=== PATIENT | female | born 1985 | race American Indian/Alaskan Native ===

== ENCOUNTER 2022-08-28 07:01 | Emergency (ER) | payer SELFPAY ==
[2022-08-28] MEDS ORDERED: Lactated Ringers 1,000 ML IV ONE (07:23)
[2022-08-28] MEDS ORDERED: Ondansetron 4 MG/2 ML SDV IVPUSH ONE (07:24)
[2022-08-28] MEDS ORDERED: Ondansetron 4 MG/2 ML SDV ONE (07:50)
[2022-08-28] MEDS ORDERED: Promethazine 25 MG/ML SDV ONE (08:39)
[2022-08-28 09:07] LABS: A/G RATIO 1.1 (0.9-1.6); ALBUMIN 3.9 g/dL (3.4-5.0); BASOPHILS PERCENT AUTO 0.2 % (0.0-1.5); BILIRUBIN TOTAL 0.4 mg/dL (0.2-1.0); CALCIUM 9.3 mg/dL (8.5-10.1); CARBON DIOXIDE,CO2 25.7 mmol/L (21.0-32.0); CREATININE 0.9 mg/dL (0.6-1.0); EOSINOPHILS ABSOLUTE AUTO 0.1 K/uL (0.0-0.7); EOSINOPHILS PERCENT AUTO 0.4 % (0.0-7.0); EST CRCL DRUG DOSING (CG) 64.58 mL/min; HEMOGLOBIN 12.9 g/dL (12.0-16.0); LYMPHOCYTES ABSOLUTE AUTO 1.4 K/uL (0.6-2.4); LYMPHOCYTES PERCENT AUTO 6.9 % (16.0-40.0); MEAN CORPUSCULAR HEMOGLOBIN 31.5 pg (27.0-32.0); MEAN CORPUSCULAR HGB CONC 33.1 g/dL (31.0-37.0); MEAN CORPUSCULAR VOLUME 95.4 fL (80.0-98.0); MONOCYTES ABSOLUTE AUTO 1.2 K/uL (0.0-0.8); MONOCYTES PERCENT AUTO 6.2 % (0.0-15.0); NEUTROPHILS ABSOLUTE AUTO 17.1 K/uL (1.4-5.7); NEUTROPHILS PERCENT AUTO 86.3 % (48.0-80.0); PLATELET COUNT,PLT 321 K/uL (150-400); POTASSIUM,K 3.3 mmol/L (3.5-5.1); PROTEIN TOTAL,TP 7.6 g/dL (6.4-8.2); RED BLOOD CELL COUNT 4.09 M/uL (4.30-5.90); WHITE BLOOD CELL COUNT,WBC 19.78 K/uL (4.0-11.0)
[2022-08-28] MEDS ORDERED: Acetaminophen 325 MG Tab PO ONE (09:45)
[2022-08-28] MEDS ORDERED: Ketorolac 30 MG/ML SDV IVPUSH ONE (09:45)
== END 2022-08-28 10:51 | disposition home or self-care (01) ==
LOC: MW.ED 07:01
DX: R10.84 Generalized abdominal pain (principal); R11.2 Nausea with vomiting, unspecified; R19.7 Diarrhea, unspecified; Z90.49 Acquired absence of other specified parts of digestive tract
CPT/HCPCS: 36415; 80053; 83690; 84703; 85025; 96361; 96374; 96375; 99284; A9270; J1885; J2405

== ENCOUNTER 2024-04-12 13:42 | Emergency (ER) | payer SELFPAY ==
[2024-04-12] MEDS: Promethazine 25 MG/ML SDV IM ONE (14:56)
[2024-04-12] MEDS: Sodium Chloride 0.9% 1,000 ML IV ONE ×2 (14:56→16:08)
[2024-04-12 15:10] LABS: BASOPHILS ABSOLUTE AUTO 0.05 K/uL (0.00-0.20); BASOPHILS PERCENT AUTO 0.3 % (0.0-1.0); HEMATOCRIT 36.2 % (37.0-47.0); IMMATURE GRAN ABSOLUTE AUTO 0.13 K/uL (0.00-0.05); IMMATURE GRAN PERCENT AUTO 0.7 % (0.0-0.4); LYMPHOCYTES ABSOLUTE AUTO 0.99 K/uL (1.00-4.80); LYMPHOCYTES PERCENT AUTO 5.5 % (24.0-44.0); MEAN CORPUSCULAR HEMOGLOBIN 30.8 pg (28.0-32.0); MEAN CORPUSCULAR HGB CONC 33.1 g/dL (32.0-36.0); MEAN CORPUSCULAR VOLUME 93.1 fL (83.0-99.0); MEAN PLATELET VOLUME 9.9 fL (9.4-12.3); MONOCYTES ABSOLUTE AUTO 0.56 K/uL (0.00-0.80); MONOCYTES PERCENT AUTO 3.1 % (0.0-8.0); NEUTROPHILS ABSOLUTE AUTO 16.38 K/uL (1.80-7.70); NEUTROPHILS PERCENT AUTO 90.4 % (41.0-71.0); PLATELET COUNT,PLT 340 K/uL (150-400); RED BLOOD CELL COUNT 3.89 M/uL (4.10-5.30); WHITE BLOOD CELL COUNT,WBC 18.11 K/uL (3.9-11.3)
[2024-04-12 15:34] LABS: A/G RATIO 1.1 (0.9-1.6); ALBUMIN 3.9 g/dL (3.4-5.0); BILIRUBIN TOTAL 0.2 mg/dL (0.2-1.0); CALCIUM 8.9 mg/dL (8.5-10.1); CARBON DIOXIDE,CO2 21.2 mmol/L (21.0-32.0); CREATININE 0.8 mg/dL (0.6-1.0); EST CRCL DRUG DOSING (CG) 68.49 mL/min; POTASSIUM,K 3.4 mmol/L (3.5-5.1); PROTEIN TOTAL,TP 7.5 g/dL (6.4-8.2)
== END 2024-04-12 17:38 | disposition home or self-care (01) ==
LOC: MW.ED 13:42
DX: K52.9 Noninfective gastroenteritis and colitis, unspecified (principal); Z90.49 Acquired absence of other specified parts of digestive tract; Z79.899 Other long term (current) drug therapy; Z75.8 Other problems related to medical facilities and other health care
CPT/HCPCS: 36415; 80053; 83690; 84703; 85025; 96360; 96361; 96372; 99284; J2550; J7030

== ENCOUNTER 2025-01-02 11:35 | Emergency (ER) | payer SELFPAY ==
[2025-01-02 12:36] LABS: APPEARANCE,URINE CLOUDY; GLUCOSE,URINE NEGATIVE (NEGATIVE); OCCULT BLOOD,URINE LARGE (NEGATIVE)
[2025-01-02 12:51] LABS: EPITHELIAL CELLS,URINE FEW (NONE-FEW)
[2025-01-02 13:21] LABS: CANDIDA DNA PROBE NEGATIVE (NEGATIVE); GARDNERELLA DNA PROBE POSITIVE (NEGATIVE); TRICHOMONAS DNA PROBE NEGATIVE (NEGATIVE)
[2025-01-02] MEDS: Lidocaine 1% PF 2 ML SDV INJECT ONE (13:43)
[2025-01-02 14:00] LABS: C. TRACHOMATIS BY PCR NOT DETECTED; N. GONORRHOEAE BY PCR NOT DETECTED
== END 2025-01-02 14:26 | disposition home or self-care (01) ==
LOC: MW.ED 11:35
DX: N76.0 Acute vaginitis (principal); N39.0 Urinary tract infection, site not specified; Z79.899 Other long term (current) drug therapy; Z90.49 Acquired absence of other specified parts of digestive tract
CPT/HCPCS: 81001; 81025; 87086; 87480; 87491; 87510; 87591; 87660; 96372; 99284; J0696; J2003; 87088; 87186

== ENCOUNTER 2025-02-03 08:36 | Emergency (ER) | payer SELFPAY | END 2025-02-03 09:39 | disposition home or self-care (01) | LOC: MW.ED 08:36 | DX: S62.636A Displaced fracture of distal phalanx of right little finger, initial encounter for closed fracture (principal); S52.91XA Unspecified fracture of right forearm, initial encounter for closed fracture; Z79.899 Other long term (current) drug therapy; Z90.49 Acquired absence of other specified parts of digestive tract; Y04.2XXA Assault by strike against or bumped into by another person, initial encounter | CPT/HCPCS: 73140; 99284; A9270; 99283 ==